=== PATIENT | male | born 1965 | race Two or more races ===

== ENCOUNTER 2023-12-08 16:50 | Inpatient (IN) | payer OTHER, MEDICAID ==
[~2023-12-08] VITALS: Ht 177.8 cm; Wt 83.8 kg
--- NOTE | 2023-12-08 17:32 | ED.PDOC ---
HPI (NEURO) HPI Comments synope when stool up from sitting on floor. this is his 3rd episode. he has a chin lac, which was repaired at [facility], then sent here. pt denies all other symptoms, besides headache Chief Complaint: Syncope Time Seen by MD: 17:28 Reviewed Notes: Nurses Notes, Medications, Allergies Information Source: Patient, Spouse Mode of Arrival: Ambulatory Severity: Moderate Dizziness/Weakness Severity: Does not affect activitie Timing: Hours Duration: Since onset Prehospital treatment: Other (lac repair) Headache Quality: Throbbing Headache Location: Generalized Onset: At rest Circumstances: Spontaneous Symptoms: Syncope Before: Normal History of: None Modifying factors: Change in position Associated Signs and Symptoms: Headache Past Medical History PAST MEDICAL HISTORY: Denies Surgical History: Denies all surgeries Family History Family History: Reviewed,noncontributory to illness, No family hx of Cancer, No family hx of DM, No family hx of Heart jg, No family hx of HTN, No family hx of Kidney jg, No family hx of Liver jg, No family hx of Lung jg, No family hx of Stroke Social History Smoker: Non-Smoker Alcohol: Denies ETOH Use Drugs: Denies Drug Use Constitutional: denies: chills, diaphoresis, fatigue, fever, malaise, sweats, weakness, others EENTM: denies: blurred vision, double vision, ear bleeding, ear discharge, ear drainage, ear pain, ear ringing, eye pain, eye redness, hearing loss, mouth pain, mouth swelling, nasal discharge, nose bleeding, nose congestion, nose pain, photophobia, tearing, throat pain, throat swelling, voice changes, others Respiratory: denies: cough, hemoptysis, orthopnea, SOB at rest, shortness of breath, SOB with excertion, stridor, wheezing, others Cardiovascular: reports: syncope; denies: chest pain, dizzy spells, diaphoresis, Dyspnea on exertion, edema, irregular heart beat, left arm pain, lightheadedness, palpitations, PND, others Gastrointestinal: denies: abdomen distended, abdominal pain, blood streaked bowels, constipated, diarrhea, dysphagia, difficulty swallowing, hematemesis, melena, nausea, poor appetite, poor fluid intake, rectal bleeding, rectal pain, vomiting, others Genitourinary: denies: burning, dysuria, flank pain, frequency, hematuria, incontinence, penile discharge, penile sore, pain, testicle pain, testicle swelling, urgency, others Neurological: reports: headache; denies: dizziness, fainting, left sided numbness, left sided weakness, numbness, paresthesia, pre-existing deficit, right sided numbness, right sided weakness, seizure, speech problems, tingling, tremors, weakness, others Musculoskeletal: denies: back pain, gout, joint pain, joint swelling, muscle pain, muscle stiffness, neck pain, others Integumetry: reports: laceration; denies: bruises, change in color, change in hair/nails, dryness, lesions, lumps, rash, wounds, others Allergic/Immunocompromised: denies: Difficulty Healing, Frequent Infections, Hives, Itching, others Hematologic/Lymphatic: denies: anemia, blood clots, easy bleeding, easy bruising, swollen glands, others Endocrine: denies: excessive hunger, excessive sweating, excessive thirst, excessive urination, flushing, intolerance to cold, intolerance to heat, unexplained weight gain, unexplained weight loss, others Psychiatric: denies: anxiety, bipolar disorder, depression, hopeless, panic disorder, schizophrenia, sleepless, suicidal, others All Other Systems: Reviewed and Negative Physical Exam General Appearance: No Apparent Distress, Normal HEENT: Normal ENT Inspection, Pharynx Normal, TMs Normal Neck: Full Range of Motion, Non-Tender, Normal, Normal Inspection Respiratory: Chest Non-Tender, Lungs Clear, No Accessory Muscle Use, No Respiratory Distress, Normal Breath Sounds Cardiovascular: No Edema, No JVD, No Murmur, No Gallop, Normal Peripheral Pulses, Regular Rate/Rhythm Breast Exam: Deferred Gastrointestinal: No Organomegaly, Non Tender, No Pulsatile Mass, Normal Bowel Sounds, Soft Genitalia: Deferred Pelvic: Deferred Rectal: Deferred Extremities: No calf tenderness, Normal capillary refill, Normal inspection, Normal range of motion, Non-tender, No pedal edema Musculoskeletal : Apperance: Normal Neurologic: Alert, lead generation specialist II-XII nml as Tested, No Motor Deficits, Normal Affect, Normal Mood, No Sensory Deficits Cerebellar Function: Normal Reflexes: Normal Skin: Dry, Lacerations (chin with repaired lac), Normal Color, Warm Lymphatic: No Adenopathy Was a procedure done? Was a procedure done?: No Differential Diagnosis (SZ) General Weakness: Anemia, Dehydration, Dysrhythmia, Electrolyte imbalance, Hypoglycemia, Hypotension, Hypovolemia, Myocardial infarction, VBI, Other (unstable angina) X-Ray, Labs, Meds, VS Vital Signs Date Time Temp Pulse Resp B/P (MAP) Pulse Ox O2 Delivery O2 Flow Rate FiO2 12/08/23 19:45 70 14 120/73 (89) 96 12/08/23 19:24 67 15 120/73 (89) 99 12/08/23 19:24 67 15 99 Room Air* 0 21 12/08/23 17:55 72 18 98 Room Air* 0 21 12/08/23 17:43 78 18 128/73 (91) 98 12/08/23 17:25 75 12/08/23 17:24 97.4 85 16 128/83 (98) 98 Lab Test 12/08/23 19:03 12/08/23 17:44 12/08/23 17:35 Range/Units Troponin I High Sensitivity 6 4 </=54 ng/L White Blood Count 11.8 H 4.4-10.8 10^3/uL Red Blood Count 4.24 L 4.5-5.90 10^6/uL Hemoglobin 13.7 13.5-17.5 g/dL Hematocrit 40.7 L 41.0-53.0 % Mean Corpuscular Volume 96.0 80.0-100.0 fL Mean Corpuscular Hemoglobin 32.4 H 28.0-32.0 pg Mean Corpuscular Hemoglobin Concent 33.8 32.0-36.0 g/dL Red Cell Distribution Width 12.1 11.8-14.3 % Platelet Count 310 140-450 10^3/uL Mean Platelet Volume 7.7 6.9-10.8 fL Neutrophils (%) (Auto) 86.4 H 37.0-80.0 % Lymphocytes (%) (Auto) 6.7 L 10.0-50.0 % Monocytes (%) (Auto) 6.5 0.0-12.0 % Eosinophils (%) (Auto) 0.1 0.0-7.0 % Basophils (%) (Auto) 0.3 0.0-2.0 % Neutrophils # (Auto) 10.2 H 1.6-8.6 10 ^3/uL Lymphocytes # (Auto) 0.8 0.4-5.4 10 ^3/uL Monocytes # (Auto) 0.8 0-1.3 10 ^3/uL Eosinophils # (Auto) 0 0-0.8 10 ^3/uL Basophils # (Auto) 0 0-0.2 10 ^3/uL Nucleated Red Blood Cells 0.1 % Urine Color Pending Urine Clarity Pending Urine pH Pending Urine Specific [place] Pending Urine Protein Pending Urine Ketones Pending Urine Blood Pending Urine Nitrite Pending Urine Bilirubin Pending Urine Urobilinogen Pending Urine Leukocyte Esterase Pending Urine RBC Pending Urine WBC Pending Urine Squamous Epithelial Cells Pending Urine Bacteria Pending Urine Glucose Pending Sodium Level 140 136-145 mmol/L Potassium Level 3.6 3.5-5.1 mmol/L Chloride Level 109 H 98-107 mmol/L Carbon Dioxide Level 23 20-31 mmol/L Anion Gap 8 5-15 Blood Urea Nitrogen 23 9-23 mg/dL Creatinine 1.05 0.700-1.30 mg/dL Glomerular Filtration Rate Calc 83 >90 mL/min BUN/Creatinine Ratio 21.9 H 10.0-20.0 Serum Glucose 109 H 74-106 mg/dL Calcium Level 8.7 8.7-10.4 mg/dL Total Bilirubin 0.4 0.2-1.0 mg/dL Aspartate Amino Transferase (AST) 21 13-40 U/L Alanine Aminotransferase (ALT) 30 7-40 U/L Alkaline Phosphatase 97 46-116 U/L Total Protein 6.2 5.7-8.2 g/dL Albumin 4.0 3.2-4.8 g/dL POC Glucose 99 70-106 mg/dl Time of 1ST Reevaluation: 18:22 Reevaluation 1ST: Unchanged (electronic device monitor- nsr) Time of 2ND Reevaluation: 19:13 Reevaluation 2ND: Unchanged (electronic device monitor- nsr) Time of 3RD Reevaluation: 20:44 Reevaluation 3RD: Improved Consultation: Other ([facility]) Patient Education/Counseling: Diagnosis, Treatment, Prognosis, Need For Follow Up Family Education/Counseling: Diagnosis, Treatment, Prognosis, Need For Follow Up Additional Information pt presents with syncope, with injury to his chin. this is his 3rd episode. although this time, it was following rising from a seated position, the previous times were not. concerns include arrhythmias, , hypoglycemia, hypotension, acs, vasovagal, orthostatic syncope. since pt is neither hypoglycemic, hypotensive, nor are all episodes associated with changes in position, arrhythmia remains a highly likely differential. we have not caught any while here, but pt will need to be admitted for further eval i spole to Dr Mcnair at [facility], pt was accepted to be transferred, however, he developed jaw pain, which is of concern, especially with the nonspecific inferior st segments on the EKGs. Dr Mcnair was contacted again and authorized pt to be admitted here #[id number] Departure 1 Departure Time of Disposition: 19:16 Impression: Primary Impression: Syncope Qualified Codes: R55 - Syncope and collapse Additional Impression: Chin laceration Qualified Codes: S01.81XD - Laceration without foreign body of other part of head, subsequent encounter Disposition: ADMITTED INPATIENT Admit to: Tele Condition: Stable Discharged With: Self, Relative Critical Care Note Critical Care Time?: Yes (1 hr-critical care time only) Critical care comment: due to the likelihood of pt's condition suddenly deteriorating, his care required my highest level of attention and readiness for intervention. i ordered the proper tests, reviewed the results, spoke to his , reassessed his condition, communicated with medical staff and consultants. total time exclude any procedures, including formulation of care plan, reasessments, and time spent on reviewing date Stability Stability form required: Yes FEDERICO AGOSTO MD Dec 08, 2023 17:32
[2023-12-08 17:55] VITALS: PULSE 72; RESP 18; O2SAT 98
--- NOTE | 2023-12-08 18:04 | DVH ---
EXAM: CT HEAD WITHOUT CONTRAST HISTORY: syncope COMPARISON: None TECHNIQUE: Axial images were obtained and reformatted in coronal and sagittal planes. All CT scans at this medical facility are performed using dose modulation techniques as appropriate t o a performed exam including the following: Automated exposure control was utilized; adjustment of th e MA and/or KV according to patient size; and use of iterative reconstruction technique. CT Dose: CTDI volume is 53.8 mGy. Dose-length product is 971.9 mGy*cm FINDINGS: Supratentorial Region: No evidence for large acute territorial ischemia. No intracranial hemorrhage is noted. Posterior Fossa: No acute abnormality. Brainstem: Unremarkable. Sellar/Suprasellar Region: Unremarkable. Ventricles, Cisterns, Sulci: Age-appropriate. Orbits: Unremarkable. Paranasal Sinuses: Unremarkable. Mastoid Air Cells: Unremarkable. Vasculature: Unremarkable. Bones/Soft Tissues: No acute abnormality. Other: None. IMPRESSION: 1. No acute intracranial process.
[2023-12-08 18:32] LABS: Basophils # (auto) 0 10 ^3/uL (0-0.2); Basophils % (auto) 0.3 % (0.0-2.0); Eosinophils # (auto) 0 10 ^3/uL (0-0.8); Eosinophils % (auto) 0.1 % (0.0-7.0); Hematocrit 40.7 % (41.0-53.0); Hemoglobin 13.7 g/dL (13.5-17.5); Lymphocytes # (auto) 0.8 10 ^3/uL (0.4-5.4); Lymphocytes % (auto) 6.7 % (10.0-50.0); Mean Corpuscular Hemoglobin 32.4 pg (28.0-32.0); Mean Corpuscular Hgb Conc. 33.8 g/dL (32.0-36.0); Monocytes # (auto) 0.8 10 ^3/uL (0-1.3); Monocytes % (auto) 6.5 % (0.0-12.0); Neutrophils # (auto) 10.2 10 ^3/uL (1.6-8.6); Neutrophils % (auto) 86.4 % (37.0-80.0); Nucleated Red Blood Cells % 0.1 %; Platelet Count (auto) 310 10^3/uL (140-450); Red Blood Cells 4.24 10^6/uL (4.5-5.90); Red Cell Distribution Width 12.1 % (11.8-14.3); White Blood Cell 11.8 10^3/uL (4.4-10.8)
[2023-12-08 18:53] LABS: Alanine Aminotransferase 30 U/L (7-40); Alkaline Phosphatase 97 U/L (46-116); Anion Gap 8 (5-15); Aspartate Aminotransferase 21 U/L (13-40); BUN/Creatinine Ratio 21.9 (10.0-20.0); Blood Urea Nitrogen 23 mg/dL (9-23); Calcium 8.7 mg/dL (8.7-10.4); Carbon Dioxide 23 mmol/L (20-31); Chloride 109 mmol/L (98-107); Glucose 109 mg/dL (74-106); Potassium 3.6 mmol/L (3.5-5.1); Sodium 140 mmol/L (136-145)
[2023-12-08 18:54] LABS: Bilirubin, Total 0.4 mg/dL (0.2-1.0); Total Protein 6.2 g/dL (5.7-8.2)
[2023-12-08 19:24] VITALS: PULSE 67; RESP 15; O2SAT 99
--- NOTE | 2023-12-08 20:09 | DVH ---
CHEST RADIOGRAPH Indication:syncope Technique: Single frontal view of the chest was obtained Comparison: None FINDINGS: Lines and Tubes: None Lungs: No focal consolidation. Pleura: No effusion. No pneumothorax. Cardiomediastinal contours: Unremarkable Bones: No acute osseous abnormality. IMPRESSION: No acute cardiopulmonary disease.
[2023-12-08] MEDS: NITROGLYCERIN 0.4 MG SL TAB SL ONE (21:23)
[2023-12-08] MEDS: ASPirin 325 MG TAB PO ONE (22:25)
[2023-12-08] MEDS ORDERED: DOCUSATE SOD 100 MG CAP PO PRN (22:45)
[2023-12-08] MEDS ORDERED: ACETAMINOPHEN 325 MG TAB PO PRN (22:45)
[2023-12-08] MEDS ORDERED: hydrALAZINE HCL 20 MG/ML VL IV PRN (22:45)
[2023-12-08] MEDS ORDERED: ONDANSETRON HCL 4 MG/2 ML VIAL IV PRN (22:45)
[2023-12-08] MEDS: HYDROcodone-ACET 5/325MG TAB PO ONE (22:50)
[2023-12-08] MEDS ORDERED: MORPHINE SULFATE INJ 2 MG/ml SYRG IV PRN (23:15)
[2023-12-08] MEDS ORDERED: NITROGLYCERIN 0.4 MG SL TAB SL PRN (23:15)
--- NOTE | 2023-12-08 23:17 | DVHHP2 ---
History of Present Illness Reason for Visit: Syncope and collapse History of Present Illness Patient is a 58-year-old male with past medical history of hypertension who presented to [facility] ED for evaluation of syncopal episode. Patient reports he had syncopal episode from sitting position with sustained chin laceration which was repaired by [facility], then sent here. Patient was seen and evaluated in the ED, laboratory data shows WBC 11.8, platelets 310, sodium 140, potassium 3.6, BUN 23, creatinine 1.05, glucose 109, troponin 4. Head CT showed no acute intracranial abnormality. Patient was given Watson 5/325 mg 1 tab p.o. times one, please see medication section in the computer. On my assessment, patient denied chest pain, no headache, no dizziness, no diaphoresis, no shortness of breath, no nausea, no vomiting, no fever, no chills. Patient was admitted for further evaluation and medical management. Past Medical History Hypertension Past Surgical History Denies all surgeries Family History Reviewed, noncontributory to the management of this case. Past Social History The patient lives at home, denies smoking, alcohol or illicit drugs abuse. Review of Systems Constitutional: No: Fever, Chills, Sweats, Weakness, Malaise, Other ENT: No: Ear pain, Ear discharge, Nose pain, Nose discharge, Nose congestion, Mouth pain, Mouth swelling, Throat pain, Throat swelling, Other Respiratory: No: Cough, Dry, Shortness of breath, SOB with excertion, Wheezing, Hemoptysis, Pleuritic Pain, Sputum, Wheezing, Other Cardiovascular: Other (Syncope); No: Chest Pain, Palpitations, Orthopnea, Paroxysmal Noc. Dyspnea, Edema, Lt Headedness Gastrointestinal: No: Nausea, Vomiting, Abdominal Pain, Diarrhea, Constipation, Melena, Hematochezia, Other Genitourinary: No Dysuria, No Frequency, No Incontinence, No Hematuria, No Retention, No Other Musculoskeletal: No: other, neck pain, shoulder pain, arm pain, back pain, hand pain, leg pain, foot pain Skin: Other (Chin laceration); No: Rash, Lesions, Jaundice, Bruising Neurological: Other (Headache); No: Weakness, Numbness, Incoordination, Change in speech, Confusion, Seizures Allergies: Coded Allergies: NO KNOWN ALLERGIES (Unverified , 12/08/23) Medications Current Medications Medications Dose Ordered Sig/Daniella Route Start Time Stop Time Status Last Admin Dose Admin Aspirin 81 mg DAILY PO 12/09/23 10:00 Sodium Chloride 10 ml Q8HR IV 12/09/23 06:00 Acetaminophen/ Hydrocodone Bitart 1 tab Q4HP PRN PO 12/08/23 22:45 Ondansetron HCl 4 mg Q4HP PRN IV 12/08/23 22:45 Docusate Sodium 100 mg BIDPRN PRN PO 12/08/23 22:45 Acetaminophen 650 mg Q6HP PRN PO 12/08/23 22:45 Hydralazine HCl 10 mg Q6HP PRN IV 12/08/23 22:45 Exam Vital Signs Vital Signs Date Time Temp Pulse Resp B/P (MAP) Pulse Ox O2 Delivery O2 Flow Rate FiO2 12/08/23 23:00 63 17 106/69 (81) 95 12/08/23 19:24 Room Air* 0 21 12/08/23 17:24 97.4 General Appearance: Alert, Oriented X3, Cooperative, No acute distress HEENT: Atraumatic, PERRLA, EOMI, Mucous membr. moist/pink Respiratory: Clear to auscultation, Normal air movement Cardiovascular: Regular rate, Normal S1, Normal S2, No murmurs Abdominal: Normal bowel sounds, Soft, No tenderness, No hepatospenomegaly, No masses Extremities: No clubbing, No cyanosis, No edema, Normal pulses, No tenderness/swelling Skin: No rashes, No breakdown, No significant lesion Neuro: Normal gait, Normal speech, Strength at 5/5 X4 ext, Normal tone, Sensation intact, Cranial nerves 3-12 NL, Reflexes 2+ Psych/Mental Status: Mental status NL, Mood NL Labs/Xrays Labs Test 12/08/23 20:41 12/08/23 17:44 12/08/23 17:35 Range/Units Troponin I High Sensitivity 7 </=54 ng/L White Blood Count 11.8 H 4.4-10.8 10^3/uL Red Blood Count 4.24 L 4.5-5.90 10^6/uL Hemoglobin 13.7 13.5-17.5 g/dL Hematocrit 40.7 L 41.0-53.0 % Mean Corpuscular Volume 96.0 80.0-100.0 fL Mean Corpuscular Hemoglobin 32.4 H 28.0-32.0 pg Mean Corpuscular Hemoglobin Concent 33.8 32.0-36.0 g/dL Red Cell Distribution Width 12.1 11.8-14.3 % Platelet Count 310 140-450 10^3/uL Mean Platelet Volume 7.7 6.9-10.8 fL Neutrophils (%) (Auto) 86.4 H 37.0-80.0 % Lymphocytes (%) (Auto) 6.7 L 10.0-50.0 % Monocytes (%) (Auto) 6.5 0.0-12.0 % Eosinophils (%) (Auto) 0.1 0.0-7.0 % Basophils (%) (Auto) 0.3 0.0-2.0 % Neutrophils # (Auto) 10.2 H 1.6-8.6 10 ^3/uL Lymphocytes # (Auto) 0.8 0.4-5.4 10 ^3/uL Monocytes # (Auto) 0.8 0-1.3 10 ^3/uL Eosinophils # (Auto) 0 0-0.8 10 ^3/uL Basophils # (Auto) 0 0-0.2 10 ^3/uL Nucleated Red Blood Cells 0.1 % Sodium Level 140 136-145 mmol/L Potassium Level 3.6 3.5-5.1 mmol/L Chloride Level 109 H 98-107 mmol/L Carbon Dioxide Level 23 20-31 mmol/L Anion Gap 8 5-15 Blood Urea Nitrogen 23 9-23 mg/dL Creatinine 1.05 0.700-1.30 mg/dL Glomerular Filtration Rate Calc 83 >90 mL/min BUN/Creatinine Ratio 21.9 H 10.0-20.0 Serum Glucose 109 H 74-106 mg/dL Calcium Level 8.7 8.7-10.4 mg/dL Total Bilirubin 0.4 0.2-1.0 mg/dL Aspartate Amino Transferase (AST) 21 13-40 U/L Alanine Aminotransferase (ALT) 30 7-40 U/L Alkaline Phosphatase 97 46-116 U/L Total Protein 6.2 5.7-8.2 g/dL Albumin 4.0 3.2-4.8 g/dL POC Glucose 99 70-106 mg/dl PATIENT: NORMA RODRIGUEZ ACCT: [id number] UNIT: [id number] : 1965 LOC: ER ROOM / BED: / AGE / SEX: 58 / M ADM STATUS: REG ER SERVICE [id number] ORDERING PHYSICIAN: FEDERICO AGOSTO MD PROCEDURE(s): HWOCT - HEAD WITHOUT CONTRAST REASON: syncope ORDER NUMBER(s): [id number], ACCESSION NUMBER(s): [id number] EXAM: CT HEAD WITHOUT CONTRAST HISTORY: syncope COMPARISON: None TECHNIQUE: Axial images were obtained and reformatted in coronal and sagittal planes. All CT scans at this medical facility are performed using dose modulation techniques as appropriate to a performed exam including the following: Automated exposure control was utilized; adjustment of the MA and/or KV according to patient size; and use of iterative reconstruction technique. CT Dose: CTDI volume is 53.8 mGy. Dose-length product is 971.9 mGy*cm FINDINGS: Supratentorial Region: No evidence for large acute territorial ischemia. No intracranial hemorrhage is noted. Posterior Fossa: No acute abnormality. Brainstem: Unremarkable. Sellar/Suprasellar Region: Unremarkable. Ventricles, Cisterns, Sulci: Age-appropriate. Orbits: Unremarkable. Paranasal Sinuses: Unremarkable. Mastoid Air Cells: Unremarkable. Vasculature: Unremarkable. Bones/Soft Tissues: No acute abnormality. Other: None. IMPRESSION: 1. No acute intracranial process. ORDERING PHYSICIAN: FEDERICO AGOSTO MD PROCEDURE(s): CXRP - CHEST PORTABLE REASON: syncope ORDER NUMBER(s): [id number], ACCESSION NUMBER(s): [id number] CHEST RADIOGRAPH Indication:syncope Technique: Single frontal view of the chest was obtained Comparison: None FINDINGS: Lines and Tubes: None Lungs: No focal consolidation. Pleura: No effusion. No pneumothorax. Cardiomediastinal contours: Unremarkable Bones: No acute osseous abnormality. IMPRESSION: No acute cardiopulmonary disease. Assessment/Plan Assessment/Plan Syncope and collapse Chin laceration Leukocytosis, unspecified Plan 1. Admit to telemetry unit 2. Breathing treatment 3. Pain control management 4. IV antibiotic management 5. Management of fluids and electrolytes 6. Consultation for Cardiology 7. Diagnostic test head CT 8. DVT prophylaxis-on aspirin 9. Repeat labs CBC, CMP in a.m. 10. Home medication reviewed and reconciled 11. Continue with current medical management 12. Treatment plan discussed with patient and RN. Patient verbalized understanding. Plan discussed with: Patient, Other (RN) My Orders Orders - GABBIE LOPEZ DNP Procedure Category Date Status Time Aspirin Tablet PHA 12/09/23 In Process 10:00 Allergies ARUNA 12/08/23 In Process 22:34 Code Status CODE 12/08/23 Transmitted 22:34 Sodium Chloride Lock PHA 12/09/23 In Process (Saline Lock Ns) 06:00 Oxygen Per Hour RT 12/08/23 Transmitted 22:34 Hydrocodone-Acet PHA 12/08/23 In Process 5/325mg Tab (Watson 22:45 Ondansetron Hcl PHA 12/08/23 In Process (Zofran) 22:45 Docusate Sodium PHA 12/08/23 In Process Capsule (Colace 22:45 Fall Risk Precautions ARUNA 12/08/[address] 22:34 Complete Blood Count LAB 12/09/23 Verified 04:00 Comprehensive LAB 12/09/23 Verified Metabolic Panel 04:00 Cardiac DIET 12/09/23 Transmitted Diet-2gna,Lofat,Lochol Breakfast Condition: Serious ARUNA 12/08/23 In Process 22:34 Acetaminophen Tablet PHA 12/08/23 In Process (Tylenol Tablet) 22:45 Sequential ARUNA 12/08/23 In Process Compression Device Hydralazine Injection PHA 12/08/23 In Process (Apresoline Inject 22:45 Admit ADMIT 12/08/23 Verified 23:15 Nitroglycerin PHA 12/08/23 Verified Sublingual (Ntrostat 23:15 Morphine Sulfate PHA 12/08/23 Verified Injection 23:15 Notify Md Of Changes [facility] 12/08/23 Verified From Base 23:15 Pediatric Acute Care Unit Nurse For [facility] 12/08/23 Verified 24 Hours 23:15 Emergency Dysrhythmia ARUNA 12/08/23 Verified Protocol 23:15 Rhythm Strips Once ARUNA 12/08/23 Verified Every Shift 23:15 Oxygen By Nasal RT 12/08/23 Verified Cannula 23:15 * Cardiology Consult CONS 12/08/23 Transmitted 23:15 Problem List: (1) Syncope and collapse (2) Chin laceration (3) Leukocytosis, unspecified Date of Service: Dec 08, 2023 Billing Provider: GABBIE LOPEZ DNP Common Visit Codes: 27323-KUMYOXL INP/OBS CARE (HIGH) GABBIE LOPEZ DNP Dec 08, 2023 23:17
[2023-12-09] VITALS (9 sets, daily range): BP systolic 105–123; BP diastolic 61–78; PULSE 59–97; RESP 16–19; TEMP 97.9–98.3; O2SAT 94–98
[2023-12-09] LABS: Urine Blood Negative /uL (Negative); Urine Clarity Clear (Clear); Urine Color Light-Yellow (Yellow); Urine Mucus FEW (None Seen); Urine Protein, UAD Negative (Negative); Urine Specific Gravity 1.016 (1.001-1.035); Urine Urobilinogen Normal (Negative); Urine WBC 3 /hpf (0 - 3)
[2023-12-09 00:04] LABS: Urine Bacteria NONE SEEN /hpf (None Seen)
[2023-12-09] MEDS ORDERED: LISI-285 PO (02:01)
[2023-12-09] MEDS ORDERED: VENL150C58 PO (02:01)
[2023-12-09] MEDS ORDERED: TRAZ-227 PO (02:01)
[2023-12-09] MEDS ORDERED: DEXT15CA PO (02:01)
[2023-12-09] MEDS: MORPHINE SULFATE INJ 2 MG/ml SYRG IV PRN (02:26)
--- NOTE | 2023-12-09 02:26 | ECG ---
[facility] Test Date: 2023-12-08 Test Time: 20:27:28 Pat Name: NORMA RODRIGUEZ Department: ER Room: 0236T A Gender: M Leno Sewer: ER : 1965 Requested By: EMERGENCY EMERGENCY Order Number: [id number] Reading MD: Sachin Parks Measurements Intervals [place] Rate: 66 P: 45 FL: 181 QRS: 71 QRSD: 138 T: 48 QT: 414 QTc: 434 Interpretive Statements Sinus rhythm Right bundle branch block Minimal ST elevation, inferior leads Electronically Signed On 12-09-2023 11:10:21 PDT by Sachin Parks Please click the below link to view image of tracing.
[2023-12-09] MEDS: cefTRIAXone 1GM/50ML D5W 50 ML IV ONE (03:50)
[2023-12-09] MEDS: SODIUM CHLOR 0.9% PF (SALINE LOCK) 10ML VIAL/SYR IV SCH (05:27)
[2023-12-09 06:25] LABS: Basophils # (auto) 0 10 ^3/uL (0-0.2); Basophils % (auto) 0.4 % (0.0-2.0); Eosinophils # (auto) 0 10 ^3/uL (0-0.8); Eosinophils % (auto) 0.4 % (0.0-7.0); Hematocrit 40.1 % (41.0-53.0); Lymphocytes # (auto) 1.3 10 ^3/uL (0.4-5.4); Lymphocytes % (auto) 16.5 % (10.0-50.0); Mean Corpuscular Hemoglobin 33.3 pg (28.0-32.0); Mean Corpuscular Hgb Conc. 34.9 g/dL (32.0-36.0); Mean Corpuscular Volume 95.6 fL (80.0-100.0); Monocytes # (auto) 0.7 10 ^3/uL (0-1.3); Monocytes % (auto) 8.7 % (0.0-12.0); Neutrophils # (auto) 5.8 10 ^3/uL (1.6-8.6); Platelet Count (auto) 318 10^3/uL (140-450); Red Blood Cells 4.19 10^6/uL (4.5-5.90); Red Cell Distribution Width 12.4 % (11.8-14.3); White Blood Cell 7.9 10^3/uL (4.4-10.8)
[2023-12-09 06:36] LABS: Alanine Aminotransferase 27 U/L (7-40); Alkaline Phosphatase 105 U/L (46-116); Anion Gap 6 (5-15); Aspartate Aminotransferase 14 U/L (13-40); BUN/Creatinine Ratio 15.5 (10.0-20.0); Bilirubin, Total 0.6 mg/dL (0.2-1.0); Blood Urea Nitrogen 16 mg/dL (9-23); Calcium 9.6 mg/dL (8.7-10.4); Carbon Dioxide 26 mmol/L (20-31); Chloride 107 mmol/L (98-107); Glucose 96 mg/dL (74-106); Potassium 3.4 mmol/L (3.5-5.1); Sodium 139 mmol/L (136-145); Total Protein 6.4 g/dL (5.7-8.2)
[2023-12-09] MEDS: ASPirin 81 mg TAB PO SCH (08:35)
[2023-12-09] MEDS: HYDROcodone-ACET 5/325MG TAB PO PRN (08:36)
[2023-12-09] MEDS ORDERED: TAMS0.4C39 PO (08:45)
[2023-12-09] MEDS ORDERED: FIN5T (08:45)
[2023-12-09] MEDS ORDERED: BUSP10TA90 PO (08:45)
--- NOTE | 2023-12-09 09:43 | DVHINCON2 ---
Date Seen: Dec 09, [address] Stroud. Reason for Consultation Syncope History of Present Illness Mr. Rodriguez a 58-year-old male with past medical history significant for hypertension, ADHD, BPH, anxiety and depression comes with the evaluation of recurrent syncopal episode. Recently patient was found to have sudden loss of consciousness with fall causing laceration in the chin status post repair with suture. Similar episode almost 9 days back and few months ago as well. Bystanders noted no seizure activity, no postictal confusion, no significant head injury, and spontaneous regain of consciousness without any focal neurological deficits. Past Medical History hypertension, ADHD, BPH, anxiety and depression Past Surgical History Denies all surgeries Family History: Hypertension G8 FATHER Family History Patient denies any family history of sudden cardiac , premature coronary artery disease, conduction abnormality, cardiomyopathy and other cardiovascular diseases. Family history positive for multiple relatives of atrial fibrillation. Social History The patient lives at home, denies smoking, alcohol or illicit drugs abuse but occasionally indulges in marijuana smoking. Allergies: Coded Allergies: NO KNOWN ALLERGIES (Unverified , 12/08/23) Home Meds Reported Medications Tamsulosin Hcl (Tamsulosin Hcl) 0.4 Mg Cap, 2 CAP PO DAILY, MG 12/09/23 Finasteride (Finasteride) 5 Mg Tab, 5 MG, TAB 12/09/23 Buspirone Hcl (Buspirone Hcl) 10 Mg Tab, 10 MG PO TID, MG 12/09/23 Dextroamphetamine Sulfate (Dextroamphetamine Sulfate) 15 Mg Cap, 2 CAP PO BID 12/09/23 Venlafaxine Hcl (Venlafaxine Hcl Er) 150 Mg Cap, 1 CAP PO DAILY 12/09/23 Lisinopril & Hydrochlorothiazi (Lisinopril/Hydrochlorothi) 1 Tab Tab, 20-25 MG PO DAILY for hypertension 12/09/23 Trazodone Hcl (Trazodone Hcl) 50 Mg Tab, 1 TAB PO HS for insomia 12/09/23 Current Medications Current Medications Medications (Trade) Dose Ordered Sig/Daniella Route PRN Reason Start Time Stop Time Status Last Admin Aspirin 81 mg DAILY PO 12/09/23 10:00 12/09/23 08:35 Sodium Chloride (Saline Lock Ns) 10 ml Q8HR IV 12/09/23 06:00 12/09/23 05:27 Acetaminophen/ Hydrocodone Bitart ([place] 5/325MG Tab) 1 tab Q4HP PRN PO MODERATE PAIN (4-6 PAIN SCALE) 12/08/23 22:45 12/09/23 08:36 Ondansetron HCl (Zofran) 4 mg Q4HP PRN IV NAUSEA / VOMITING 12/08/23 22:45 Docusate Sodium (Colace Capsule) 100 mg BIDPRN PRN PO FOR CONSTIPATION 12/08/23 22:45 Acetaminophen (Tylenol Tablet) 650 mg Q6HP PRN PO PAIN SCALE 1-3 OR TEMP>100.4 12/08/23 22:45 Hydralazine HCl (Apresoline Injection) 10 mg Q6HP PRN IV SBP>150 12/08/23 22:45 Nitroglycerin (Ntrostat Sublingual) 0.4 mg Q5MINP PRN SL FOR CHEST PAIN 12/08/23 23:15 Morphine Sulfate 2 mg Q30M PRN IV FOR CHEST PAIN 12/08/23 23:15 Morphine Sulfate 2 mg Q4HPRN PRN IV SEVERE PAIN (7-10 PAIN SCALE) 12/09/23 02:15 12/09/23 02:26 Ceftriaxone Sodium 50 ml @ 100 mls/hr DAILY@09 IV 12/10/23 09:00 Review of Systems CONSTITUTIONAL: Fever, night sweats, weight loss, Lymphadenopathy, ecchymoses, fatigue: Negative DERMATOLOGIC: Rash, New/growing/changing skin lesions: Negative HEENT: Vision change, eye pain, Rhinorrhea, sinus pain, epistaxis, dysphagia, odynophagia, globus sensation, Change in hearing, tinnitus, vertigo, otalgia, Dental problems, oral ulcers or lesions: : Negative ENDOCRINE: Weight change, heat or cold intolerance, tremor, insomnia, neck pain or swelling, Polyuria, polydipsia, polyphagia, Abnormal hair growth, change in nails: Negative CARDIOVASCULAR: Chest pain, palpitations, Edema, cyanosis, claudication, Orthopnea, paroxysmal nocturnal dyspnea: Negative syncope: Positive PULMONARY: Shortness of breath, dyspnea with exertion, Cough, hemoptysis, wheezing, chest pain : Negative GI: Nausea, vomiting, diarrhea, melena, hematochezia, Change in appetite, abdominal pain, change in bowel habits or stools: Negative : Dysuria, frequency, urgency, Urinary incontinence, hematuria, foamy urine, nocturia, Change in libido, erectile dysfunction, Change in menses, dysmenorrhea, dyspaerunia, pelvic pain: : Negative MUSCULOSKELETAL: Joint swelling or pain, muscle pain, back pain: : Negative NEUROLOGIC: Headache, scotoma, Change in smell or taste, change in facial muscles, Muscle weakness, paresthesias, anesthesia, Ataxia, change in speech: Negative PSYCHIATRIC: Depression, anxiety: Positive hallucinations, adriane, suicidal/homicidal thoughts, Binging, purging: Negative Vital Signs Vital Signs Date Time Temp Pulse Resp B/P (MAP) Pulse Ox O2 Delivery O2 Flow Rate FiO2 12/09/23 08:47 98.3 67 19 115/63 (80) 97 98.3 12/09/23 01:18 Room Air* 0 21 Physical Exam GENERAL APPEARANCE: Well developed, well nourished, alert and cooperative, and appears to be in no acute distress. HEENT: Normocephalic, chin laceration repaired, healthy wound NECK: Neck supple, non-tender without lymphadenopathy, masses or thyromegaly. CARDIAC: Normal S1 and S2. No S3, S4 or murmurs. Rhythm is regular. There is no peripheral edema, cyanosis or pallor. Extremities are warm and well perfused. Capillary refill is less than 2 seconds. No carotid bruits. LUNGS: Clear to auscultation and percussion without rales, rhonchi, wheezing or diminished breath sounds. ABDOMEN: Positive bowel sounds. Soft, mildly distended, nontender. No guarding or rebound. No masses. MUSCULOSKELETAL: Adequately aligned spine. ROM intact spine and extremities. No joint erythema or tenderness. Normal muscular development. Normal gait. EXTREMITIES: No significant deformity or joint abnormality. No edema. Peripheral pulses intact. No varicosities. NEUROLOGICAL: CN II-XII intact. Strength and sensation symmetric and intact throughout. Reflexes 2+ throughout. Cerebellar testing normal. SKIN: Skin normal color, texture and turgor with no lesions or eruptions. Labs/Diagnostic Data Labs Test 12/09/23 05:08 12/08/23 23:20 12/08/23 20:41 12/08/23 17:35 Range/Units White Blood Count 7.9 # 4.4-10.8 10^3/uL Red Blood Count 4.19 L 4.5-5.90 10^6/uL Hemoglobin 14.0 13.5-17.5 g/dL Hematocrit 40.1 L 41.0-53.0 % Mean Corpuscular Volume 95.6 80.0-100.0 fL Mean Corpuscular Hemoglobin 33.3 H 28.0-32.0 pg Mean Corpuscular Hemoglobin Concent 34.9 32.0-36.0 g/dL Red Cell Distribution Width 12.4 11.8-14.3 % Platelet Count 318 140-450 10^3/uL Mean Platelet Volume 7.8 6.9-10.8 fL Neutrophils (%) (Auto) 74.0 37.0-80.0 % Lymphocytes (%) (Auto) 16.5 10.0-50.0 % Monocytes (%) (Auto) 8.7 0.0-12.0 % Eosinophils (%) (Auto) 0.4 0.0-7.0 % Basophils (%) (Auto) 0.4 0.0-2.0 % Neutrophils # (Auto) 5.8 1.6-8.6 10 ^3/uL Lymphocytes # (Auto) 1.3 0.4-5.4 10 ^3/uL Monocytes # (Auto) 0.7 0-1.3 10 ^3/uL Eosinophils # (Auto) 0 0-0.8 10 ^3/uL Basophils # (Auto) 0 0-0.2 10 ^3/uL Nucleated Red Blood Cells 0.0 % Sodium Level 139 136-145 mmol/L Potassium Level 3.4 L 3.5-5.1 mmol/L Chloride Level 107 98-107 mmol/L Carbon Dioxide Level 26 20-31 mmol/L Anion Gap 6 5-15 Blood Urea Nitrogen 16 9-23 mg/dL Creatinine 1.03 0.700-1.30 mg/dL Glomerular Filtration Rate Calc 85 >90 mL/min BUN/Creatinine Ratio 15.5 10.0-20.0 Serum Glucose 96 74-106 mg/dL Calcium Level 9.6 8.7-10.4 mg/dL Total Bilirubin 0.6 0.2-1.0 mg/dL Aspartate Amino Transferase (AST) 14 13-40 U/L Alanine Aminotransferase (ALT) 27 7-40 U/L Alkaline Phosphatase 105 46-116 U/L Total Protein 6.4 5.7-8.2 g/dL Albumin 4.0 3.2-4.8 g/dL Urine Color Light-yellow Yellow Urine Clarity Clear Clear Urine pH 6.0 5.0-9.0 Urine Specific [place] 1.016 1.001-1.035 Urine Protein Negative Negative Urine Ketones Negative Negative Urine Blood Negative Negative /uL Urine Nitrite Negative Negative Urine Bilirubin Negative Negative Urine Urobilinogen Normal Negative mg/dL Urine Leukocyte Esterase Negative Negative /uL Urine RBC <1 0 - 3 /hpf Urine WBC 3 0 - 3 /hpf Urine Squamous Epithelial Cells Few <5 /hpf Urine Bacteria None seen None Seen /hpf Urine Mucus Few None Seen Urine Glucose Normal Normal mg/dL Troponin I High Sensitivity 7 </=54 ng/L POC Glucose 99 70-106 mg/dl Labs: presented with leukocytosis 11.8, improved to 9.9, TSH elevated 8.7 on but free T3-T4 WNL, cholesterol WNL, BNP 24.89, troponin negative, HbA1c Other imaging: Brain MRI negative, carotid Doppler negative, noncontrast head CT negative on 12/08/2023 CXR: 12/08/2023 No acute cardiopulmonary disease. Echo: 12/09/2023 Conclusion lvef 55% by visual estimate normal rv function left atrium enlarged EK Sinus rhythm Right bundle branch block ST elevation, consider inferior injury Telemetry data: Normal sinus rhythm in 70s to 90s at rest. Stress test: Never done before/not available. Coronary catheterization: Never done before/not available Assessment 58-year-old with hypertension and no other cardiac riskfactor presented with recurrent syncopal episode, so far all workup with orthostatic vitals, TTE, carotid duplex ultrasound, rhythm monitoring with telemetry and laboratory wo rkup negative. Patient needs further outpatient follow up with event monitoring for possible underlying an undiscovered rhythm anomaly. 1. Essential hypertension 2. Benign prostatic hyperplasia/BPH 3. Attention deficit hyperactivity disorder/ADHD 4. Anxiety and depression 5. Right bundle-branch block 6. Recurrent syncopal episode 7. Chin laceration secondary to fall, status post suture 8. Enlarged left atrium Plan/Recommendation 1. Further longitudinal follow up with event monitoring device as outpatient. 2. Follow up outpatient with Cardiology. 3. Continue other excellent medical care as per primary team. Discussed with Dr. Burk. Critical care time spent 45 minutes. Thank you for the opportunity to consult on your patient. Cardiology will sign off. Please feel free to ask any further questions. Plan discussed with: Patient, Daughter (Primary Team, RN), Other Date of Service: Dec 09, 2023 Billing Provider: BENJAMIN BURK MD Cardiology Common Codes: [id number] INP/OBS CARE (High) TOMMIE GEE RESIDENT Dec 09, 2023 09:42
[2023-12-09 10:24] LABS: Triglycerides 105 mg/dL (< 150)
[2023-12-09 10:25] LABS: LDL Cholesterol 68 mg/dL (< 100)
[2023-12-09 10:26] LABS: Cholesterol 129 mg/dL (< 200); HDL Cholesterol 50 mg/dL (40-59)
[2023-12-09] MEDS: DEXTROAMPHETAMINE 15 MG PO SCH (10:30)
--- NOTE | 2023-12-09 11:06 | ECG ---
[facility] Test Date: 2023-12-08 Test Time: 17:25:51 Pat Name: NORMA RODRIGUEZ Department: er Room: 0236T A Gender: M Kitchen Steward: kim : 1965 Requested By: FEDERICO AGOSTO Order Number: [id number] Reading MD: Sachin Parks Measurements Intervals [place] Rate: 75 P: 44 ME: 181 QRS: 69 QRSD: 135 T: 41 QT: 392 QTc: 438 Interpretive Statements Sinus rhythm Right bundle branch block ST elevation, consider inferior injury Electronically Signed On 12-09-2023 11:09:56 PDT by Sachin Parks Please click the below link to view image of tracing.
[2023-12-09] MEDS: VENLAFAXINE HCL 37.5mg XR cap PO SCH (11:24)
[2023-12-09] MEDS: FINASTERIDE 5 MG TAB PO SCH (11:24)
[2023-12-09] MEDS: LISINOPRIL 20 MG TAB PO SCH (11:25)
[2023-12-09] MEDS: hydroCHLOROthiazide 25 MG TAB PO SCH (11:25)
--- NOTE | 2023-12-09 11:37 | DVH ---
Carotid Duplex Date: 12/09/2023 10:08 AM Clinical History: Syncope Comparison: None Technique: Duplex Doppler evaluation of the extracranial carotid and vertebral arteries including color Doppler and spectral/pulsed waveform analysis was performed. Findings: RIGHT SIDE: The peak systolic velocities are 107 cm/s in the distal CCA and 116 cm/s in the proximal ICA.The ICA/ CCA ratio is less than 1. The external carotid artery is patent with peak systolic velocity of 82 cm/s proximally. There is appropriate antegrade flow in the right vertebral artery. LEFT SIDE: The peak systolic velocities are 120 cm/s in the distal CCA and 98 cm/s in the proximal ICA. The ICA /CCA ratio is less than 1. The external carotid artery is patent with peak systolic velocity of 90 cm/s proximally. There is appropriate antegrade flow in the left vertebral artery. IMPRESSION: No hemodynamically significant stenosis noted in the right carotid system. No hemodynamically significant stenosis noted in the left carotid system. Reference:Radiology 2003; 229:340-346
--- NOTE | 2023-12-09 12:01 | DVHPN2 ---
Reviewed: Care Plan, H&P, Labs, Medications, Previous Orders, Radiology Changes from previous H/P or p: No Changes General: Per HPI ENT: No Ear pain, No Ear discharge, No Nose pain, No Nose discharge, No Nose congestion, No Mouth pain, No Mouth swelling, No Throat pain, No Throat swelling, No Other Cardiovascular: No Chest Pain, No Palpitations, No Orthopnea, No Paroxysmal Noc. Dyspnea, No Edema, No Lt Headedness; Other (Syncope) Respiratory: No Cough, No Dry, No Shortness of breath, No SOB with excertion, No Wheezing, No Hemoptysis, No Pleuritic Pain, No Sputum, No Other Gastrointestinal: No Nausea, No Vomiting, No Abdominal Pain, No Diarrhea, No Constipation, No Melena, No Hematochezia, No Other Genitourinary: No Dysuria, No Frequency, No Incontinence, No Hematuria, No Retention, No Other Musculoskeletal: No other, No neck pain, No shoulder pain, No arm pain, No back pain, No hand pain, No leg pain, No foot pain Skin: No Rash, No Lesions, No Jaundice, No Bruising; Other (Chin laceration) Objective Vitals Vital Signs Date Time Temp Pulse Resp B/P (MAP) Pulse Ox O2 Delivery O2 Flow Rate FiO2 12/09/23 11:25 110/75 12/09/23 08:47 98.3 67 19 97 98.3 12/09/23 01:18 Room Air* 0 21 Intake/Output Intake and Output 12/09/23 07:00 Intake Total 300 ml Balance 300 ml Intake Oral 300 ml # Voids 2 General Appearance: Alert, Oriented X3, Cooperative Cardiovascular: Regular rate, Normal S1, Normal S2 Abdomen: Normal bowel sounds, Soft Medications Current Medications Medications Dose Ordered Sig/Daniella Route Start Time Stop Time Status Last Admin Dose Admin Aspirin 81 mg DAILY PO 12/09/23 10:00 12/09/23 08:35 81 MG Sodium Chloride 10 ml Q8HR IV 12/09/23 06:00 12/09/23 05:27 10 ML Acetaminophen/ Hydrocodone Bitart 1 tab Q4HP PRN PO 12/08/23 22:45 12/09/23 08:36 1 TAB Ondansetron HCl 4 mg Q4HP PRN IV 12/08/23 22:45 Docusate Sodium 100 mg BIDPRN PRN PO 12/08/23 22:45 Acetaminophen 650 mg Q6HP PRN PO 12/08/23 22:45 Hydralazine HCl 10 mg Q6HP PRN IV 12/08/23 22:45 Nitroglycerin 0.4 mg Q5MINP PRN SL 12/08/23 23:15 Morphine Sulfate 2 mg Q30M PRN IV 12/08/23 23:15 Morphine Sulfate 2 mg Q4HPRN PRN IV 12/09/23 02:15 12/09/23 02:26 2 MG Ceftriaxone Sodium 50 ml @ 100 mls/hr DAILY@09 IV 12/10/23 09:00 Buspirone HCl 10 mg TID PO 12/09/23 14:00 Finasteride 5 mg DAILY PO 12/09/23 10:15 12/09/23 11:24 5 MG Tamsulosin HCl 0.8 mg QPM PO 12/09/23 18:00 Trazodone HCl 50 mg HS PO 12/09/23 22:00 Venlafaxine HCl 150 mg DAILY PO 12/09/23 10:28 12/09/23 11:24 150 MG Lisinopril 20 mg DAILY PO 12/09/23 10:30 12/09/23 11:25 20 MG Hydrochlorothiazide 25 mg DAILY PO 12/09/23 10:30 12/09/23 11:25 25 MG Patient Own Medication 2 BID PO 12/09/23 10:30 Laboratory Results Laboratory Tests 12/09/23 05:08 Chemistry Test 12/08/23 17:44 12/09/23 05:08 Albumin 4.0 g/dL (3.2-4.8) 4.0 g/dL (3.2-4.8) Calcium Level 8.7 mg/dL (8.7-10.4) 9.6 mg/dL (8.7-10.4) Total Protein 6.2 g/dL (5.7-8.2) 6.4 g/dL (5.7-8.2) Lipid panel Test 12/09/23 05:08 Cholesterol Level 129 mg/dL (< 200) HDL Cholesterol 50 mg/dL (40-59) Triglycerides Level 105 mg/dL (< 150) Cardiac Markers Test 12/09/23 05:08 B-Type Natriuretic Peptide 24.89 pg/mL (0-100) LFT Test 12/08/23 17:44 12/09/23 05:08 Alanine Aminotransferase (ALT) 30 U/L (7-40) 27 U/L (7-40) Alkaline Phosphatase 97 U/L (46-116) 105 U/L (46-116) Aspartate Amino Transferase (AST) 21 U/L (13-40) 14 U/L (13-40) Total Bilirubin 0.4 mg/dL (0.2-1.0) 0.6 mg/dL (0.2-1.0) HgA1c, TSH Test 12/09/23 05:08 Hemoglobin A1c 5.6 % A1C (<5.7) Thyroid Stimulating Hormone (TSH) 8.71 uIU/mL (0.55-4.78) H Urinalysis Test 12/08/23 23:20 Urine Color Light-yellow (Yellow) Urine Clarity Clear (Clear) Urine pH 6.0 (5.0-9.0) Urine Specific [place] 1.016 (1.001-1.035) Urine Protein Negative (Negative) Urine Ketones Negative (Negative) Urine Blood Negative /uL (Negative) Urine Nitrite Negative (Negative) Urine Bilirubin Negative (Negative) Urine Urobilinogen Normal mg/dL (Negative) Urine Leukocyte Esterase Negative /uL (Negative) Urine RBC <1 /hpf (0 - 3) Urine WBC 3 /hpf (0 - 3) Urine Squamous Epithelial Cells Few /hpf (<5) Urine Bacteria None seen /hpf (None Seen) Urine Mucus Few (None Seen) Urine Glucose Normal mg/dL (Normal) Labs and/or images reviewed: Labs reviewed by me Assessment/Plan Assessment/Plan Patient is a 58-year-old male with past medical history of hypertension who presented to [facility] ED for evaluation of syncopal episode. Patient reports he had syncopal episode from sitting position with sustained chin laceration which was repaired by Fan, then sent here. Patient was seen and evaluated in the ED, laboratory data shows WBC 11.8, platelets 310, sodium 140, potassium 3.6, BUN 23, creatinine 1.05, glucose 109, troponin 4. Head CT showed no acute intracranial abnormality. Patient was given [place] 5/325 mg 1 tab p.o. times one, please see medication section in the computer. On my assessment, patient denied chest pain, no headache, no dizziness, no diaphoresis, no shortness of breath, no nausea, no vomiting, no fever, no chills. Patient was admitted for further evaluation and medical management. Syncope and collapse Leukocytosis, unspecified Essential hypertension Benign prostatic hyperplasia/BPH Attention deficit hyperactivity disorder/ADHD Anxiety and depression Right bundle-branch block Recurrent syncopal episode Chin laceration secondary to fall, status post suture Enlarged left atrium 12/09/2023: ordering MRI. pending full evaluation by cardiology Plan discussed with: Patient My Orders Orders - LISE TRINH DO Procedure Category Date Status Time Buspirone Hcl Tablet PHA 12/09/23 In Process (Buspar Tablet) 14:00 Finasteride Tablet PHA 12/09/23 In Process (Proscar Tablet) 10:15 Tamsulosin PHA 12/09/23 In Process Hydrochloride (Flomax) 18:00 Trazodone Hcl PHA 12/09/23 In Process (Desyrel) 22:00 Lisinopril Tablet PHA 12/09/23 In Process (Zestril Tablet) 10:30 Hydrochlorothiazide PHA 12/09/23 In Process Tablet (Hydrochlorot 10:30 Patients Own PHA 12/09/23 In Process Medication 10:30 Venlafaxine Xr PHA 12/09/23 In Process (Effexor Xr) 10:28 Date of Service: Dec 09, 2023 Billing Provider: LISE TRINH DO Common Visit Codes: [id number] INP/OBS CARE(HIGH) LISE TRINH DO Dec 09, 2023 12:01
--- NOTE | 2023-12-09 13:06 | DVHSR ---
APPROVED REPORT EXAM: Two-dimensional and M-mode echocardiogram with Doppler and color Doppler. Blood Pressure: 115/63 mmHg INDICATION Syncope RISK FACTORS Height: 70, Weight: 192 DIMENSIONS LVDd4.1 (3.8-5.7cm)LA (2D)3.2 (1.9-4.0cm)Aortic Root3.9 (2.0-3.7cm) LVDs2.9 (2.5-4.0cm)LA (MM) (1.9-4.0cm)Aortic Cusp Exc1.9 (1.5-2.0cm) EF (%) 54.0 (55-70%)Rt. Atrium3.1 (1.9-4.0cm)Asc. Aorta cm IVSd1.1 (0.7-1.1cm)RV (D) (1.8-2.4cm) PWd1.1 (0.7-1.1cm) Mitral Valve MitralMitral Stenosis E wave0.74m/sMV Mean GR.mmHg A wave0.57m/sMV Peak GR.mmHg E/A ratio1.32D MVAcm2 DECEL [id number] 1/2 Timems Aortic Valve Aortic ValveAortic Stenosis V11.04m/Marli Mean GR.3mmHg V21.26m/Marli Peak GR.6mmHg LVOT Diameter2.2 (1.8-2.4cm)Doppler AVA3.14cm2 Pulmonic Valve V21.19m/s Conclusion lvef 55% by visual estimate normal rv function left atrium enlarged
[2023-12-09 13:42] LABS: Amphetamine Screen, Urine Pos (NEGATIVE)
[2023-12-09 13:43] LABS: Barbiturate Scree,Urine Neg (NEGATIVE); Benzodiazephine Screen, Urine Pos (NEGATIVE); Cannabinoid Screen, Urine Pos (NEGATIVE); Cocaine Screen, Urine Neg (NEGATIVE); Opiate Scree,Urine Neg (NEGATIVE); Phencyclidine Screen, Urine Neg (NEGATIVE)
[2023-12-09 13:44] LABS: Free T4 (Free Thyroxine) 1.01 ng/dL (0.89-1.76)
[2023-12-09 13:45] LABS: Free T3 3.51 pg/mL (2.3-4.2)
--- NOTE | 2023-12-09 14:13 | DVH ---
MRI BRAIN WITHOUT CONTRAST CLINICAL HISTORY: syncope TECHNIQUE: Multiplanar, multisequence MR images of the brain without intravenous contrast. Comparison: CT head 12/08/2023 FINDINGS: There is no restricted diffusion. The ballard and white matter signal is appropriate. There is no eviden ce of hemorrhage, mass, mass effect or midline shift. There is no hydrocephalus or extra-axial fluid collection. The visualized intracranial vasculature demonstrates appropriate flow-voids. The midline structures appear unremarkable. The craniocervical junction is within normal limits. The calvarium de monstrates normal marrow signal. The paranasal sinuses and mastoid air cells are clear. IMPRESSION: 1. Unremarkable noncontrast MRI brain. HS:Y
[2023-12-09] MEDS: busPIRone HCL 10 MG TAB PO SCH (15:00)
[2023-12-09] MEDS: TAMSULOSIN HYDROCHLORIDE 0.4 MG CAP PO SCH (18:04)
[2023-12-09] MEDS: traZODone HCL 50 MG TAB PO SCH (20:32)
[2023-12-10 05:00] VITALS: BP 101/62; PULSE 85; RESP 18; TEMP 97.9; O2SAT 95
[2023-12-10 08:00] VITALS: PULSE 55; PULSE 58; RESP 16; O2SAT 98
[2023-12-10 08:54] VITALS: BP 107/72; PULSE 58; RESP 16; TEMP 98; O2SAT 93
[2023-12-10] MEDS: cefTRIAXone 1GM/50ML D5W 50 ML IV SCH (09:04)
[2023-12-10] MEDS ORDERED: HYDR25TA5 PO (12:22)
[2023-12-10] MEDS ORDERED: ASPI-325 PO (12:22)
[2023-12-10] MEDS ORDERED: LISI20TA56 PO (12:22)
--- NOTE | 2023-12-10 12:24 | DVHDS2 ---
Discharge Summary Date of Admission Dec 08, 2023 at 23:16 Date of Discharge: Dec 10, 2023 Labs/Diagnostic Data: Laboratory Results Test 12/09/23 05:08 12/08/23 23:20 12/08/23 20:41 12/08/23 17:35 White Blood Count 7.9 10^3/uL (4.4-10.8) Red Blood Count 4.19 10^6/uL (4.5-5.90) Hemoglobin 14.0 g/dL (13.5-17.5) Hematocrit 40.1 % (41.0-53.0) Mean Corpuscular Volume 95.6 fL (80.0-100.0) Mean Corpuscular Hemoglobin 33.3 pg (28.0-32.0) Mean Corpuscular Hemoglobin Concent 34.9 g/dL (32.0-36.0) Red Cell Distribution Width 12.4 % (11.8-14.3) Platelet Count 318 10^3/uL (140-450) Mean Platelet Volume 7.8 fL (6.9-10.8) Neutrophils (%) (Auto) 74.0 % (37.0-80.0) Lymphocytes (%) (Auto) 16.5 % (10.0-50.0) Monocytes (%) (Auto) 8.7 % (0.0-12.0) Eosinophils (%) (Auto) 0.4 % (0.0-7.0) Basophils (%) (Auto) 0.4 % (0.0-2.0) Neutrophils # (Auto) 5.8 10 ^3/uL (1.6-8.6) Lymphocytes # (Auto) 1.3 10 ^3/uL (0.4-5.4) Monocytes # (Auto) 0.7 10 ^3/uL (0-1.3) Eosinophils # (Auto) 0 10 ^3/uL (0-0.8) Basophils # (Auto) 0 10 ^3/uL (0-0.2) Nucleated Red Blood Cells 0.0 % Sodium Level 139 mmol/L (136-145) Potassium Level 3.4 mmol/L (3.5-5.1) Chloride Level 107 mmol/L (98-107) Carbon Dioxide Level 26 mmol/L (20-31) Anion Gap 6 (5-15) Blood Urea Nitrogen 16 mg/dL (9-23) Creatinine 1.03 mg/dL (0.700-1.30) Glomerular Filtration Rate Calc 85 mL/min (>90) BUN/Creatinine Ratio 15.5 (10.0-20.0) Serum Glucose 96 mg/dL (74-106) Hemoglobin A1c 5.6 % A1C (<5.7) Calcium Level 9.6 mg/dL (8.7-10.4) Total Bilirubin 0.6 mg/dL (0.2-1.0) Aspartate Amino Transferase (AST) 14 U/L (13-40) Alanine Aminotransferase (ALT) 27 U/L (7-40) Alkaline Phosphatase 105 U/L (46-116) B-Type Natriuretic Peptide 24.89 pg/mL (0-100) Total Protein 6.4 g/dL (5.7-8.2) Albumin 4.0 g/dL (3.2-4.8) Triglycerides Level 105 mg/dL (< 150) Cholesterol Level 129 mg/dL (< 200) LDL Cholesterol 68 mg/dL (< 100) HDL Cholesterol 50 mg/dL (40-59) Thyroid Stimulating Hormone (TSH) 8.71 uIU/mL (0.55-4.78) Free Thyroxine (T4) Calculated 1.01 ng/dL (0.89-1.76) Free Triiodothyronine (T3) pg/mL 3.51 pg/mL (2.3-4.2) Urine Color Light-yellow (Yellow) Urine Clarity Clear (Clear) Urine pH 6.0 (5.0-9.0) Urine Specific [place] 1.016 (1.001-1.035) Urine Protein Negative (Negative) Urine Ketones Negative (Negative) Urine Blood Negative /uL (Negative) Urine Nitrite Negative (Negative) Urine Bilirubin Negative (Negative) Urine Urobilinogen Normal mg/dL (Negative) Urine Leukocyte Esterase Negative /uL (Negative) Urine RBC <1 /hpf (0 - 3) Urine WBC 3 /hpf (0 - 3) Urine Squamous Epithelial Cells Few /hpf (<5) Urine Bacteria None seen /hpf (None Seen) Urine Mucus Few (None Seen) Urine Glucose Normal mg/dL (Normal) Urine Opiates Screen Neg (NEGATIVE) Urine Fentanyl Screen Neg (NEGATIVE) Urine Barbiturates Screen Neg (NEGATIVE) Urine Phencyclidine Screen Neg (NEGATIVE) Urine Amphetamines Screen Pos (NEGATIVE) Urine Benzodiazepines Screen Pos (NEGATIVE) Urine Cocaine Screen Neg (NEGATIVE) Urine Cannabinoids Screen Pos (NEGATIVE) Troponin I High Sensitivity 7 ng/L (</=54) POC Glucose 99 mg/dl (70-106) Other Laboratory Tests 12/09/23 05:08 Brief Hx & Hospital Course: Patient is a 58-year-old male with past medical history of hypertension who presented to [facility] ED for evaluation of syncopal episode. Patient reports he had syncopal episode from sitting position with sustained chin laceration which was repaired by Fan, then sent here. Patient was seen and evaluated in the ED, laboratory data shows WBC 11.8, platelets 310, sodium 140, potassium 3.6, BUN 23, creatinine 1.05, glucose 109, troponin 4. Head CT showed no acute intracranial abnormality. Patient was given [address] 5/325 mg 1 tab p.o. times one, please see medication section in the computer. On my assessment, patient denied chest pain, no headache, no dizziness, no diaphoresis, no shortness of breath, no nausea, no vomiting, no fever, no chills. Patient was admitted for further evaluation and medical management. Syncope and collapse Leukocytosis, unspecified Essential hypertension Benign prostatic hyperplasia/BPH Attention deficit hyperactivity disorder/ADHD Anxiety and depression Right bundle-branch block Recurrent syncopal episode Chin laceration secondary to fall, status post suture Enlarged left atrium MRI brain was negative ECHO is 55% CT brain was negative carotid US b/l showed no stenosis pt was cleared by cardiology for discharge discharged to home with self care Condition at Discharge: Good Final Diagnosis/Problems List see above Discharge Disposition: Home Discharge Instruct/Medications Diet: Cardiac 2g Na,low cholest Activity: No Restrictions, As Tolerated Discharge Statement: "Patient was advised to return to the ER or call 911 if any headaches, dizziness, shortness of breath, chest pain, abdominal pain, bleeding, fevers, or worsening of medical condition. Patient was counseled about treatment plan, medications, possible side effects, patientverbalized understanding. All questions were answered to the best of my ability. This discharge took greater then 30 minutes in planning, reviewing documentation, counseling the patient, and discussing with other team members." ASSESSMENT ASSESSMENT Assessment Date of Service: Dec 10, 2023 Billing Provider: LISE TRINH DO Common Visit Codes: 62099-TLO/OBS DISCH DAY >30min LISE TRINH DO Dec 10, 2023 12:24
[2023-12-10 13:00] VITALS: BP 113/59; PULSE 93; RESP 16; TEMP 98.1; O2SAT 96
== END 2023-12-10 14:38 | disposition home or self-care (01) | DRG 312 ==
LOC: ER 16:55 → EEVIPCON 16:55 → TELE 23:16 → TELE-EAST 12-09 01:20
PROVIDERS: ADMIT Nurse Practitioner Family; ATTEND Internal Medicine
DX: R55 Syncope and collapse (principal); D72.829 Elevated white blood cell count, unspecified; I10 Essential (primary) hypertension; N40.0 Benign prostatic hyperplasia without lower urinary tract symptoms; F90.9 Attention-deficit hyperactivity disorder, unspecified type; F32.A Depression, unspecified; F41.9 Anxiety disorder, unspecified; I45.10 Unspecified right bundle-branch block; Z82.49 Family history of ischemic heart disease and other diseases of the circulatory system; W18.39XA Other fall on same level, initial encounter; Y93.89 Activity, other specified; Y92.89 Other specified places as the place of occurrence of the external cause; Y99.8 Other external cause status
CPT/HCPCS: 36415; 70450; 70551; 71045; 80053; 80061; 80307; 81001; 82962; 83036; 83880; 84439; 84443; 84481; 84484; 85025; 93005; 93306; 93886; 99291; G0378